=== PATIENT | female | born 1970 | race African-American/Black ===

== ENCOUNTER 2022-08-19 17:24 | Emergency (ER) | payer MEDICAID, OTHER ==
[~2022-08-19] VITALS: Ht 167.6 cm; Wt 91.0 kg
[2022-08-19 18:55] LABS: BASOPHILS % 0.2 % (0.0-2.0); EOSINOPHILS % 0.7 % (0.0-5.0); HEMATOCRIT. 38.1 % (36.0-48.0); HEMOGLOBIN. 12.6 g/dL (12.0-16.0); LYMPHOCYTES % 11.1 % (20.0-50.0); MEAN CORPUSCULAR VOLUME 90.4 fL (81.0-99.0); MEAN PLATELET VOLUME 8.1 fl (7.4-10.4); MONOCYTES % 6.3 % (2.0-8.0); NEUTROPHILS % 81.7 % (40.0-76.0); PLATELET 241 x1000/uL (130-400); RED BLOOD CELL COUNT 4.21 mill/uL (4.2-5.4); RED CELL DISTRIBUTION WIDTH 13.6 % (11.6-14.6)
[2022-08-19 19:09] LABS: CHLORIDE 105 mEq/L (98-107)
[2022-08-19] MEDS ORDERED: BACL-141 MT (19:37)
[2022-08-19] MEDS ORDERED: ACET-2708 MT (19:37)
[2022-08-19] MEDS ORDERED: LIDO700A15 TP (19:37)
[2022-08-19 19:49] VITALS: BP 128/82
== END 2022-08-19 19:48 | disposition home or self-care (01) ==
LOC: ER 17:24
DX: R25.2 Cramp and spasm (principal); Z79.899 Other long term (current) drug therapy
CPT/HCPCS: 36415; 80053; 85025; 99283

== ENCOUNTER 2023-02-27 19:08 | Emergency (ER) | payer MEDICAID, OTHER ==
[~2023-02-27] VITALS: Ht 175.3 cm; Wt 124.5 kg
[~2023-02-27 19:08] MED LIST: ACET-2708 MT; BACL-141 MT; LIDO700A15 TP
[2023-02-27] MEDS ORDERED: LIDOCAINE 5% PATCH TOP SCH (23:00)
[2023-02-27] MEDS ORDERED: KETOROLAC 30MG/ML VIAL IM ONE (23:00)
[2023-02-28 00:26] VITALS: BP 132/89
[2023-02-28] MEDS ORDERED: LIDO700A15 TP (01:10)
[2023-02-28] MEDS ORDERED: NAPR-681 MT (01:10)
== END 2023-02-28 02:18 | disposition home or self-care (01) ==
LOC: ER 19:08
DX: S80.02XA Contusion of left knee, initial encounter (principal); S80.01XA Contusion of right knee, initial encounter; S20.212A Contusion of left front wall of thorax, initial encounter; M54.50 Low back pain, unspecified; W01.0XXA Fall on same level from slipping, tripping and stumbling without subsequent striking against object, initial encounter; Y93.89 Activity, other specified; Y92.512 Supermarket, store or market as the place of occurrence of the external cause; Y99.8 Other external cause status
CPT/HCPCS: 71045; 73562; 96372; 99284; J1885